=== PATIENT | female | born 1975 | race Two or more races ===

== ENCOUNTER 2021-05-27 13:28 | Emergency (ER) | payer SELFPAY ==
[~2021-05-27] VITALS: Ht 162.6 cm; Wt 104.3 kg
[2021-05-27 17:29] VITALS: BP 123/72
== END 2021-05-27 18:15 | disposition home or self-care (01) ==
LOC: ER 13:29
DX: S60.463A Insect bite (nonvenomous) of left middle finger, initial encounter (principal); W57.XXXA Bitten or stung by nonvenomous insect and other nonvenomous arthropods, initial encounter; Y93.89 Activity, other specified; Y92.89 Other specified places as the place of occurrence of the external cause; Y99.8 Other external cause status